=== PATIENT | male | born 1960 | race African-American/Black ===

== ENCOUNTER 2023-03-21 10:48 | Emergency (ER) | payer OTHER ==
[~2023-03-21] VITALS: Ht 162.6 cm; Wt 47.6 kg
--- NOTE | 2023-03-21 11:14 | NUR ---
DAMIAN CALLE [facility] "Accidentally pulled out trach- was reinserted in + Blood from trach site sent here to have it checked Karyn 7.5 UnCuffed".
--- NOTE | 2023-03-21 11:17 | NUR ---
AT BEDSIDE FOR EVAL.
--- NOTE | 2023-03-21 11:45 | NUR ---
X-RAY TECH. AT BEDSIDE
--- NOTE | 2023-03-21 12:55 | NUR ---
SET UP BLS TRANSPORT FOR PT. ETA IS BETWEEN 1355 - 1415 PER [facility]IMAS.
--- NOTE | 2023-03-21 13:55 | NUR ---
CALLED THE FACILITY TO INFORM ABOUT THE PATIENT COMING BACK. WAS INFORMED BY THE VACUUM DRIER OPERATOR THAT THEY DON'T HAVE A BED FOR THE PATIENT ANYMORE.
--- NOTE | 2023-03-21 13:59 | NUR ---
case management called for assistance, spoke with Lien. they said that they will call the facility, [facility].
--- NOTE | 2023-03-21 14:07 | NUR ---
SWAB FOR COVID19 SENT TO LAB
--- NOTE | 2023-03-22 01:17 | NUR ---
ATTEMPTED TO CALL [facility]
--- NOTE | 2023-03-22 08:19 | NUR ---
Santhosh Naik Daughter
--- NOTE | 2023-03-22 09:21 | NUR ---
CALLED [facility] REGARDING PT F/U REGARDING PT'S BED FOR D/C CESAR FROM ADMINISTRATION STATED [facility] DOES NOT HAVE A BED HOLD POLICY. AWAITING FOR POLICY TO BE FAXED. DR OSMIN PERKINS AWARE.
--- NOTE | 2023-03-22 09:29 | NUR ---
PAGED CASE MGMT FOR UPDATE REGARDING CASE. NO ANSWER, LEFT MESSAGE
--- NOTE | 2023-03-22 09:31 | NUR ---
PAGED NURSING SUP, NO ANSWER. WILL CALL AGAIN
--- NOTE | 2023-03-22 09:55 | NUR ---
KIRA PHYSICAL METALLURGIST CALLED BACK. INFORMED US PT NEEDS TO BE ADMITTED IN ORDER FOR INSURANCE TO FIND NEW PLACEMENT. OLD FACILITY REFUSING PT.
--- NOTE | 2023-03-22 10:00 | NUR ---
SHINE JARVIS FOR PEER TO PEER Addendum: 03/22/23 at 1001 by HSLADE SHINE ORELLANA FOR PEER TO PEER
--- NOTE | 2023-03-22 10:25 | NUR ---
GLAZE MIXER AT BEDSIDE
[2023-03-22 10:49] LABS: BASOPHILS # (AUTO) 0.1 K/uL (0.0-0.2); BASOPHILS % (AUTO) 1.2 % (0.0-2.0); EOSINOPHILS % (AUTO) 2.1 % (0.0-6.0); HEMATOCRIT 26 % (39-51); HEMOGLOBIN 8.6 g/dL (13.5-17.5); LYMPHOCYTES # (AUTO) 1.5 K/uL (0.8-4.8); LYMPHOCYTES % (AUTO) 30.2 % (20.0-44.0); MEAN CORPUSCULAR HGB CONC 33 g/dl (31.0-36.0); MEAN CORPUSCULAR VOLUME 92 fL (80-96); MONOCYTES # (AUTO) 0.3 K/uL (0.1-1.30); NEUTROPHILS # (AUTO) 2.9 K/uL (1.8-8.9); NEUTROPHILS % (AUTO) 59.5 % (43.0-81.0); PLATELET COUNT (AUTO) 368 K/uL (150-450); RED BLOOD CELL COUNT(AUTO) 2.81 MIL/uL (4.5-6.0); WHITE BLOOD COUNT (AUTO) 4.9 K/uL (4.3-11.0)
[2023-03-22 10:54] LABS: CALCIUM, SERUM 9.9 mg/dL (8.5-10.1); CREATININE 0.6 mg/dL (0.6-1.3); POTASSIUM 4.3 mmol/L (3.5-5.1)
[2023-03-22] MEDS ORDERED: PANT40SU2 GT (11:46)
[2023-03-22] MEDS ORDERED: CALC500T13 GT (11:46)
[2023-03-22] MEDS ORDERED: HYDR-4303 GT (11:46)
[2023-03-22] MEDS ORDERED: LACT-209 GT (11:46)
[2023-03-22] MEDS ORDERED: ATOR10TA GT (11:46)
[2023-03-22] MEDS ORDERED: ONDA4TAB5 GT (11:46)
[2023-03-22] MEDS ORDERED: LORA-259 GT (11:46)
[2023-03-22] MEDS ORDERED: FERR300L GT (11:46)
[2023-03-22] MEDS ORDERED: MAGN400O6 GT (11:46)
[2023-03-22] MEDS ORDERED: NA P133E RC (11:46)
[2023-03-22] MEDS ORDERED: MAG30ORA GT (11:46)
[2023-03-22] MEDS ORDERED: ACET-868 GT (11:46)
[2023-03-22] MEDS ORDERED: LEVE250T2 GT (11:46)
[2023-03-22] MEDS ORDERED: DOCU50LI GT (11:46)
[2023-03-22] MEDS ORDERED: GLYC2TAB21 GT (11:46)
[2023-03-22] MEDS ORDERED: DONE5TAB34 GT (11:46)
[2023-03-22] MEDS ORDERED: ACET1OOV6 HHN (11:46)
[2023-03-22] MEDS ORDERED: IPRA3AMP23 IH ×2 (11:46)
[2023-03-22] MEDS ORDERED: CARB1TAB21 GT (11:46)
[2023-03-22] MEDS ORDERED: FOLI0.4T6 GT (11:46)
[2023-03-22] MEDS ORDERED: SUCR1ORA6 GT (11:46)
[2023-03-22] MEDS ORDERED: ACET-2605 GT (11:46)
[2023-03-22] MEDS ORDERED: MULT-447 GT (11:46)
[2023-03-22] MEDS ORDERED: CHLO473M5 MM (11:46)
[2023-03-22] MEDS ORDERED: MODAFINIL GT (11:46)
[2023-03-22] MEDS ORDERED: PRAM0.129 GT (11:46)
[2023-03-22] MEDS ORDERED: TYL2T GT (11:46)
[2023-03-22] MEDS ORDERED: METO-295 GT (11:46)
[2023-03-22] MEDS ORDERED: BISA10SU11 RC (11:46)
--- NOTE | 2023-03-22 13:28 | NUR ---
PT ACCEPTED AT [facility], BED#[id number]. CALL [phone] TO GIVE REPORT
--- NOTE | 2023-03-22 13:37 | NUR ---
TRANSPORT ARRANGED WITH [facility] [phone] 1530 ETA Addendum: 03/22/23 at 1457 by FALGUNIADE TRANSPORT ARRANGED WITH [facility] [phone] 1530 ETA
--- NOTE | 2023-03-22 13:42 | NUR ---
REPORT GIVEN TO NURSE RIZO FROM [facility].
--- NOTE | 2023-03-22 15:42 | NUR ---
[phone] UPDATED ETA [facility]
--- NOTE | 2023-03-22 17:16 | NUR ---
[facility] AT BEDSIDE FOR PT TRANSPORT TO [facility]. REPORT GIVEN
[2023-03-22 17:18] VITALS: BP 119/73
== END 2023-03-22 17:19 | disposition short-term general hospital (02) ==
LOC: ER 11:04
DX: J95.03 Malfunction of tracheostomy stoma (principal); I11.0 Hypertensive heart disease with heart failure; I50.9 Heart failure, unspecified; Z20.822 Contact with and (suspected) exposure to COVID-19
CPT/HCPCS: 99285; 71045; 87426; 94799; 93005; 85025; 80048; 36415; 87081; 31720; A4623; C9803; A7526